=== PATIENT | female | born 1965 | race Caucasian/White ===

== ENCOUNTER 2019-10-13 01:33 | Emergency (ER) | payer MEDICARE ==
[~2019-10-13] VITALS: Ht 170.2 cm; Wt 83.0 kg
[~2019-10-13 01:33] MED LIST: Z GEODON; Z LITHIUM CARBON; Z.0.TRAZODONE HCL300; [UNRECOGNIZED DRUG - MIXTURE]
--- OUTSIDE RECORDS SUMMARY | 2019-10-13 01:37 | XMS REPORT ---
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 Allergies, Adverse Reactions, Alerts Allergy Name Allergy Type Status Severity Reaction(s) Onset Date Inactive Date Treating Clinician Comments No Known Allergies DA Active U 2013-02-11 00:00:00 Medications This patient has no known medications. Encounters Start Date/Time End Date/Time Encounter Type Admission Type Attending Clinicians [facility] Facility Care Department Encounter ID 2019-10-03 22:23:00 Inpatient E [facility] MED [id number]
== END 2019-10-13 02:10 | disposition left against medical advice (07) ==
LOC: ER 01:33
DX: R53.1 Weakness (principal)